=== PATIENT | male | born 1985 ===

== ENCOUNTER 2016-10-11 10:43 | Emergency (ER) | payer MEDICAID, OTHER ==
[2016-10-11 11:02] VITALS: TEMP 98
[2016-10-11 12:19] LABS: RBC URINE < 1 /hpf (0-3); URINE BILIRUBIN NEGATIVE (NEGATIVE); URINE BLOOD NEGATIVE (NEGATIVE); URINE COLOR Yellow (YELLOW); URINE GLUCOSE (UA) NORMAL (Normal); URINE KETONE NEGATIVE (NEGATIVE); URINE LEUKOCYTE ESTERASE TRACE Leu/uL (Negative); URINE PROTEIN NEGATIVE (NEGATIVE); URINE UROBILINOGEN NORMAL mg/dL (0.2-1.0); WBC URINE < 1 /hpf (0-5)
--- NOTE | 2016-10-11 12:19 | C.PDOC ---
History Of Present Illness A 31 year old male presents to the emergency room requesting STD testing. Patient wants to be checked and reports exposure to a person with a known Chlamydia infection. Patient is currently asymptomatic and denies any fever, chills, abdominal pain, back pain, incontinence, frequency, dysuria, hematuria, penile discharges, testicular pain or swelling, or any other complaints. Patient was offered STD treatment but refused. Patient prefers to wait for results. Time Seen by Provider: 10/11/16 11:40 Chief Complaint (Nursing): Male Genitourinary History Per: Patient History/Exam Limitations: no limitations Onset/Duration Of Symptoms: Unknown Current Symptoms Are (Timing): Still Present Severity: None Quality Of Discomfort: denies: "Pain" Associated Symptoms: denies: Fever, Chills, Nausea, Vomiting, Diarrhea, Back Pain, Urinary Symptoms Alleviating Factors: None Recent travel outside of the [place]: No Past Medical History Reviewed: Historical Data, Nursing Documentation, Vital Signs Vital Signs: Last Vital Signs Temp 98 F 10/11/16 11:00 Pulse 94 H 10/11/16 11:00 Resp 20 10/11/16 11:00 BP 130/80 10/11/16 11:00 Pulse Ox 100 10/11/16 12:31 Family History: States: No Known Family Hx - Social History Hx Alcohol Use: Yes Hx Substance Use: Yes - Immunization History Hx Tetanus Toxoid Vaccination: No Hx Influenza Vaccination: No Review Of Systems Except As Marked, All Systems Reviewed And Found Negative. Constitutional: Negative for: Fever, Chills Gastrointestinal: Negative for: Nausea, Vomiting, Abdominal Pain, Diarrhea Genitourinary: Positive for: Other (Reported exposure to person with known Chlamydia infection.). Negative for: Dysuria, Frequency, Incontinence, Hematuria Musculoskeletal: Negative for: Back Pain Physical Exam - Physical Exam Appears: Well, Non-toxic, No Acute Distress Skin: Normal Color, Warm, Dry, No Rash Head: Atraumatic, Normacephalic Eye(s): bilateral: Normal Inspection Ear(s): Bilateral: Normal Nose: Normal, No Epistaxis, No Tenderness Oral Mucosa: Moist Tongue: Normal Appearing, No Swelling Lips: Normal Appearing, No Swelling Throat: Normal, No Erythema, No Exudate Neck: Normal, Normal ROM, No Midline Cervical Tenderness, No Paracervical Tenderness, Supple Cardiovascular: Rhythm Regular Respiratory: Normal Breath Sounds, No Rales, No Rhonchi, No Wheezing Gastrointestinal/Abdominal: Soft, No Tenderness, No Guarding, No Rebound Back: No CVA Tenderness, No Vertebral Tenderness Male Genital: Other (refused) Extremity: Normal ROM, No Tenderness Neurological/Psych: Oriented x3, Normal Speech, Normal Motor, Normal Sensation ED Course And Treatment O2 Sat by Pulse Oximetry: 100 Pulse Ox Interpretation: Normal Progress Note: Patient was offered STD treatment but refused. Patient prefers to wait for results. On re-eavluation, pt is afebrile, hemodynamicaly stable. non-toxic. Tolerate Po well in Ed. Abd: benign. back: (-) CVA tenderness. UA results review and appears noraml. Pt was offered prophy STD tx now, refused and prefer yto wait for results. Results of UA review with pt and appears normal. Pt ref. to F/u with Clinic/Med records for results. return to Ed at any time if any sx or new changes. Disposition Counseled Patient/Family Regarding: Studies Performed, Diagnosis, Need For Followup - Disposition Referrals: [facility] [Outside] Disposition: HOME/ ROUTINE Disposition Time: 12:17 Condition: STABLE Additional Instructions: FOLLOW UP WITH MEDICAL RECORDS FOR RESULTS OF YOUR TESTING RETURN TO ED AT ANY TIME IF ANY SYMPTOMS OCCUR FOR TREATMENT, AVOID SEXUAL ACTIVITY UNTIL KNOW RESULTS. Instructions: Sexually Transmitted Diseases (ED) - Clinical Impression Clinical Impression: Screening for STD (sexually transmitted disease) - Scribe Statement The provider has reviewed the documentation as recorded by the Scribe Forrest Vincent All medical record entries made by the Scribe were at my direction and personally dictated by me. I have reviewed the chart and agree that the record accurately reflects my personal performance of the history, physical exam, medical decision making, and the department course for this patient. I have also personally directed, reviewed, and agree with the discharge instructions and disposition.
[2016-10-11 14:00] VITALS: BP 124/72; PULSE 71; RESP 18; O2SAT 98
== END 2016-10-11 14:01 | disposition home or self-care (01) ==
LOC: MERGE 10:43 → C.ER 10:43
DX: Z11.3 Encounter for screening for infections with a predominantly sexual mode of transmission (principal)